=== PATIENT | female | born 1975 | race Hispanic/Latino ===

== ENCOUNTER 2020-06-21 15:06 | Emergency (ER) | payer SELFPAY ==
--- NOTE | 2020-06-21 15:32 | RAD REPORT ---
EXAM DESCRIPTION: CT - Ct Stroke Brain Wo Cont - 06/21/2020 3:24 pm CLINICAL HISTORY: NUMBNESS, left facial droop, left leg tingling COMPARISON: No comparisons TECHNIQUE: Axial 5 millimeter thick images of the head were obtained without IV contrast. All CT scans are performed using dose optimization technique as appropriate and may include automated exposure control or mA/KV adjustment according to patient size. FINDINGS: No intracranial hemorrhage, mass, or cerebral edema. No acute infarction identifiable. No extra-axial fluid collections. Watson matter-white matter differentiation is preserved. Visualized portions of the mastoid air cells, paranasal sinuses, and orbits are unremarkable. Findings telephoned to Romain Barrera at 3:28 p.m. IMPRESSION: No CT evidence of acute intracranial process.
[2020-06-21 15:47] LABS: Absolute Lymphocytes (CBC) 2.9 K/uL (0.7-4.9); Basophils % 1.2 % (0-1.3); Hematocrit 43.2 % (36.0-45.0); Lymphocytes % 29.1 % (15.3-44.8); MPV 8.3 fL (7.6-11.3); RBC Red Blood Cell Count 4.91 M/uL (3.86-4.86)
[2020-06-21 15:51] LABS: Protime INR 0.95
[2020-06-21 15:59] LABS: Potassium 3.4 mmol/L (3.5-5.1)
--- NOTE | 2020-06-21 16:12 | RAD REPORT ---
EXAM DESCRIPTION: RAD - Chest Single View - 06/21/2020 3:51 pm CLINICAL HISTORY: Paresthesia, left-sided facial droop, Stroke protocol chest film COMPARISON: None TECHNIQUE: AP portable chest image was obtained 06/21/2020 3:51 pm . FINDINGS: Lungs are clear. Heart and vasculature are normal. No measurable pleural effusion and no p neumothorax. No acute bony abnormality seen. No acute aortic findings suspected. IMPRESSION: No acute cardiopulmonary process.
--- NOTE | 2020-06-21 17:50 | RAD REPORT ---
EXAM DESCRIPTION: MRI - Brain Wo Cont - 06/21/2020 5:42 pm CLINICAL HISTORY: Left eye droop, left-sided facial tingling COMPARISON: Ct Stroke Brain Wo Cont dated 06/21/2020 TECHNIQUE: Sagittal T1-weighted images were obtained along with axial PD, heavily T2-weighted and T2 -FLAIR images. Axial DWI and ADC mapping sequences were also obtained along with coronal heavily T2-w eighted images. FINDINGS: No intracranial hemorrhage, mass or acute infarction. There is no edema or shift of midlin e structures. No extra-axial fluid collections. Watson-matter/white matter junction is preserved. Signa l voids are seen as a normal finding in the major intracranial vessels. No volume loss chronic ischem ic change. No evidence for vasculitis, demyelinating disease or other significant finding. No globe or orbital content abnormality. No tonsillar ectopia. No sella or supra sella abnormality se en. Mastoid air cells and paranasal sinuses are clear. IMPRESSION: Negative non-contrast MRI of the Brain.
--- NOTE | 2020-06-21 17:54 | EDPHYS ---
Physician Documentation [facility] Name: Cynthia Bazzi Age: 45 yrs Sex: Female : 1975 Arrival Date: 06/21/2020 Time: 15:09 Bed 6 Private MD: FRANCOIS Physician Jhony Cosby HPI: 06/21 15:20 This 45 yrs old Female presents to ER via Wheelchair with complaints of Facial pm1 Droop, Numbness Of Face. 15:20 The patient presents to the emergency department with paresthesias of the left side of pm1 upper lip, left facial drooping. Onset: The symptoms/episode began/occurred at 11:00. Context: occurred at home, occurred while the patient was face time with family. Associated signs and symptoms: Pertinent negatives: fever, headache, visual changes. Severity of symptoms: in the emergency department the symptoms are unchanged. Severity of symptoms: Pain is currently a 0 / 10. Patient's baseline: Neuro: alert and fully oriented, Motor: no deficits, Ambulation: walks without assistance, Speech: normal. The patient has not experienced similar symptoms in the past. Patient was on the phone face timing with her family and they mentioned to her that her left eyelid looked like it was drooping. Patient noted some numbness and tingling to left upper lip. No extremity weakness present, difficulty talking or walking. Historical: - Allergies: 15:28 No Known Allergies; tw2 - Home Meds: 15:28 None [Active]; tw2 - PMHx: 15:28 Hypertension; tw2 - PSHx: 15:28 Tubal ligation; tw2 - Immunization history:: Adult Immunizations. - Social history:: Smoking status: . ROS: 16:02 Constitutional: Negative for fever, chills, and weight loss, Neck: Negative for injury, pm1 pain, and swelling. 16:02 Cardiovascular: Negative for chest pain, palpitations, and edema, Respiratory: Negative for shortness of breath, cough, wheezing, and pleuritic chest pain, Abdomen/GI: Negative for abdominal pain, nausea, vomiting, diarrhea, and constipation, Back: Negative for injury and pain, MS/Extremity: Negative for injury and deformity, Skin: Negative for injury, rash, and discoloration. 16:02 Eyes: Negative for blurry vision, injury or acute deformity, pain, vision loss. 16:02 Neuro: Positive for numbness, of the left side of upper lip, Negative for dizziness, headache, syncope, near syncope, visual changes, weakness. Exam: 15:39 Constitutional: This is a well developed, well nourished patient who is awake, alert, pm1 and in no acute distress. Head/Face: Normocephalic, atraumatic. 15:39 ENT: Nares patent. No nasal discharge, no septal abnormalities noted. Tympanic membranes are normal and external auditory canals are clear. Oropharynx with no redness, swelling, or masses, exudates, or evidence of obstruction, uvula midline. Mucous membranes moist. Neck: Trachea midline, no thyromegaly or masses palpated, and no cervical lymphadenopathy. Supple, full range of motion without nuchal rigidity, or vertebral point tenderness. No Meningismus. 15:39 Back: No spinal tenderness. No costovertebral tenderness. Full range of motion. Skin: Warm, dry with normal turgor. Normal color with no rashes, no lesions, and no evidence of cellulitis. MS/ Extremity: Pulses equal, no cyanosis. Neurovascular intact. Full, normal range of motion. 15:39 Eyes: Periorbital structures: swelling, that is mild, on the left upper eyelid, Pupils: no acute changes, Extraocular movements: intact throughout, Conjunctiva: no acute changes. 15:39 Cardiovascular: Rate: normal, Rhythm: regular, Pulses: no pulse deficits are appreciated, Heart sounds: normal, Edema: is not appreciated. 15:39 Respiratory: Exam negative for acute changes, respiratory distress, shortness of breath, Breath sounds: are clear throughout. 15:39 Abdomen/GI: Inspection: abdomen appears normal, Palpation: abdomen is soft and non-tender, in all quadrants. 15:39 Neuro: Orientation: is normal, Mentation: is normal, Cranial nerves: CN II- XII are normal as tested, Motor: moves all fours, strength is 5/5 in all extremities, Sensation: is normal, no obvious gross deficits. 15:39 Psych: Behavior/mood is anxious, Affect is animated, Oriented to person, place, time. Vital Signs: 15:15 BP 160 / 94; Pulse 111; Resp 18; Temp 97.9(TE); Pulse Ox 98% on R/A; Weight 86.18 kg tw2 (R); Height 5 ft. 3 in. (160.02 cm); Pain 0/10; 15:30 BP 166 / 106; Pulse 85; Resp 16 S; Pulse Ox 98% on R/A; Pain 0/10; jl7 16:30 BP 151 / 94; Pulse 84; Resp 15; Pulse Ox 99% ; jl7 17:45 BP 139 / 90; Pulse 72; Resp 14; Pulse Ox 100% ; Pain 0/10; jl7 15:15 Body Mass Index 33.66 (86.18 kg, 160.02 cm) tw2 NIH Stroke Scale Scores: 15:30 NIHSS Score: 0 jl7 15:39 NIHSS Score: 0 pm1 MDM: 15:16 Patient medically screened. pm1 17:52 Data reviewed: vital signs. Data interpreted: Pulse oximetry: on room air is 98 %. pm1 Interpretation: normal. Counseling: I had a detailed discussion with the patient and/or guardian regarding: the historical points, exam findings, and any diagnostic results supporting the discharge/admit diagnosis, lab results, radiology results, the need for outpatient follow up, to return to the emergency department if symptoms worsen or persist or if there are any questions or concerns that arise at home. 17:52 ED course: Patient with current blood pressure 139/90, [address] Cosby recommended pm1 metoprolol and Norvasc based on initial presentation blood pressure along with daily aspirin and multivitamin. Patient was anxious at that time and tachycardic. Patient is now calm. Will initiate that patient on starting dose of lisinopril along with recommending multivitamin and aspirin. Discussed follow up with PCP, cardiology, and neurology for reevalution and further management of blood pressure. 06/21 15:19 Order name: Basic Metabolic Panel; Complete Time: 16:00 pm1 06/21 15:19 Order name: CBC with Diff; Complete Time: 15:52 pm1 06/21 15:19 Order name: Protime (+inr); Complete Time: 15:54 pm1 06/21 15:19 Order name: Ptt, Activated; Complete Time: 15:54 pm1 06/21 15:19 Order name: CT Stroke Brain w/o Contrast; Complete Time: 15:33 pm1 06/21 15:43 Order name: Glucose, Ancillary Testing; Complete Time: 15:52 EDMS 06/21 15:19 Order name: Stroke CXR 1 View; Complete Time: 16:22 pm1 06/21 15:19 Order name: EKG; Complete Time: 15:21 pm1 06/21 15:19 Order name: Accucheck; Complete Time: 15:43 pm1 06/21 15:19 Order name: Cardiac monitoring; Complete Time: 18:23 pm1 06/21 15:19 Order name: EKG - Nurse/Tech; Complete Time: 15:43 pm06/21 15:19 Order name: IV Saline Lock; Complete Time: 15:43 pm06/21 15:45 Order name: MRI - Brain Wo Cont; Complete Time: 17:52 pm1 06/21 15:19 Order name: Labs collected and sent; Complete Time: 15:43 pm1 06/21 15:19 Order name: NPO; Complete Time: 15:43 pm1 06/21 15:19 Order name: O2 Per Protocol; Complete Time: 15:43 pm1 06/21 15:19 Order name: O2 Sat Monitoring; Complete Time: 15:43 pm1 06/21 15:19 Order name: Stroke Swallow Screen; Complete Time: 18:24 pm1 Administered Medications: 18:47 Not Given (Hemodynamic Parameters): NS 0.9% 1000 ml IV at 1000 ml once jl7 Point of Care Testing: Blood Glucose: 15:30 Blood Glucose: 108 mg/dL; sv Ranges: Critical Glucose Levels:Adult <50 mg/dl or >400 mg/dl <40 mg/dl or >180 mg/dl Disposition: 06/22 17:23 Co-signature as Attending Physician, Jhony Cosby MD I agree with the assessment and sumaya plan of care. Disposition: 06/21/20 17:54 Discharged to Home. Impression: Paresthesia of skin, Anxiety disorder, unspecified, Essential (primary) hypertension. - Condition is Stable. - Discharge Instructions: Hypertension, Paresthesia, How to Take Your Blood Pressure, [id number], Aspirin and Your Heart, Generalized Anxiety Disorder, DASH Eating Plan, Managing Your Hypertension. - Prescriptions for Lisinopril 10 mg Oral Tablet - take 1 tablet by ORAL route once daily; 20 tablet. - Medication Reconciliation Form, Thank You Letter, Antibiotic Education, Prescription Opioid Use form. - Follow up: Emergency Department; When: As needed; Reason: Worsening of condition. Follow up: Private Physician; When: 2 - 3 days; Reason: Recheck today's complaints, Continuance of care, Re-evaluation by your physician. Follow up: Miguel Angel Gallo MD; When: 2 - 3 days; Reason: Recheck today's complaints, Continuance of care, Re-evaluation by your physician. Follow up: Alex Arechiga MD; When: 2 - 3 days; Reason: Recheck today's complaints, Continuance of care, Re-evaluation by your physician. - Problem is new. - Symptoms have improved. NIH Stroke Scale - NIH Stroke Score Date: 06/21/2020 Time: 15:30 Total Score = 0 1a. Level of Consciousness (LOC) - 0(Alert) 1b. Level of Consciousness (LOC) (Year \T\ Age) - 0(Both) 1c. LOC Commands (Open \T\ Closes Eyes/Can Technician) - 0(Both) 2. Best Gaze (Lateral Gaze Paresis) - 0(Normal) 3. Visual Field Loss - 0(No visual loss) 4. Facial Palsy - 0(Normal) 5a. Left Arm: Motor (10-second hold) - 0(No drift) 5b. Right Arm: Motor (10-second hold) - 0(No drift) 6a. Left Leg: Motor (5-second hold - always test supine) - 0(No drift) 6b. Right Leg: Motor (5-second hold - always test supine) - 0(No drift) 7. Limb Ataxia (finger/nose \T\ heel/booth - test with eyes open) - 0(Absent) 8. Sensory Loss (pinprick arms/legs/face) - 0(Normal) 9. Best Language: Aphasia (description/naming/reading) - 0(No aphasia) 10. Dysarthria (speech clarity - read or repeat words) - 0(Normal) 11. Extinction and Inattention (visual/tactile/auditory/spatial/personal) - 0(No abnormality) Initials: jl7 NIH Stroke Scale - NIH Stroke Score Date: 06/21/2020 Time: 15:39 Total Score = 0 1a. Level of Consciousness (LOC) - 0(Alert) 1b. Level of Consciousness (LOC) (Year \T\ Age) - 0(Both) 1c. LOC Commands (Open \T\ Closes Eyes/Can Technician) - 0(Both) 2. Best Gaze (Lateral Gaze Paresis) - 0(Normal) 3. Visual Field Loss - 0(No visual loss) 4. Facial Palsy - 0(Normal) 5a. Left Arm: Motor (10-second hold) - 0(No drift) 5b. Right Arm: Motor (10-second hold) - 0(No drift) 6a. Left Leg: Motor (5-second hold - always test supine) - 0(No drift) 6b. Right Leg: Motor (5-second hold - always test supine) - 0(No drift) 7. Limb Ataxia (finger/nose \T\ heel/booth - test with eyes open) - 0(Absent) 8. Sensory Loss (pinprick arms/legs/face) - 0(Normal) 9. Best Language: Aphasia (description/naming/reading) - 0(No aphasia) 10. Dysarthria (speech clarity - read or repeat words) - 0(Normal) 11. Extinction and Inattention (visual/tactile/auditory/spatial/personal) - 0(No abnormality) Initials: pm1 Signatures: Dispatcher [employer] EDMS Jhony Cosby MD MD cha Marinas, Patrick, SUPERVISOR SHRIMP POND SUPERVISOR SHRIMP POND pm1 Viv Mccarthy RN RN tw2 Francisco Betancur RN RN jl7 Corrections: (The following items were deleted from the chart) 06/21 17:57 17:54 06/21/2020 17:54 Discharged to Home. Impression: Paresthesia of skin; pm1 Anxiety disorder, unspecified; Essential (primary) hypertension. Condition is Stable. Forms are Medication Reconciliation Form, Thank You Letter, Antibiotic Education, Prescription Opioid Use. Follow up: Emergency Department; When: As needed; Reason: Worsening of condition. Follow up: Private Physician; When: 2 - 3 days; Reason: Recheck today's complaints, Continuance of care, Re-evaluation by your physician. Problem is new. Symptoms have improved. pm1 18:48 17:57 06/21/2020 17:54 Discharged to Home. Impression: Paresthesia of skin; jl7 Anxiety disorder, unspecified; Essential (primary) hypertension. Condition is Stable. Discharge Instructions: Hypertension, Paresthesia, How to Take Your Blood Pressure, [id number], Generalized Anxiety Disorder, DASH Eating Plan, Managing Your Hypertension. Prescriptions for Norvasc 10 mg Oral Tablet - take 1 tablet by ORAL route once daily; 30 tablet, Metoprolol Tartrate 25 mg Oral Tablet - take 1 tablet by ORAL route 2 times per day with a meal; 20 tablet. and Forms are Medication Reconciliation Form, Thank You Letter, Antibiotic Education, Prescription Opioid Use. Follow up: Emergency Department; When: As needed; Reason: Worsening of condition. Follow up: Private Physician; When: 2 - 3 days; Reason: Recheck today's complaints, Continuance of care, Re-evaluation by your physician. Follow up: Miguel Angel Gallo; When: 2 - 3 days; Reason: Recheck today's complaints, Continuance of care, Re-evaluation by your physician. Follow up: Alex Arechiga; When: 2 - 3 days; Reason: Recheck today's complaints, Continuance of care, Re-evaluation by your physician. Problem is new. Symptoms have improved. pm1
--- NOTE | 2020-06-21 17:54 | ER ---
Nurse's Notes [facility] Name: Cynthia Bazzi Age: 45 yrs Sex: Female : 1975 Arrival Date: 06/21/2020 Time: 15:09 Bed 6 Private MD: Diagnosis: Paresthesia of skin;Anxiety disorder, unspecified;Essential (primary) hypertension Presentation: 06/21 15:15 Chief complaint: Patient states: i was fine at 11 am, then about an hour ago i was face tw2 timing someone and they noticed the left side of my face drooping, then i noticed my left lip tingling, no weakness on hands or legs. Coronavirus screen: At this time, the client does not indicate any symptoms associated with coronavirus-19. Ebola Screen: Patient denies travel to an Ebola-affected area in the 21 days before illness onset. Initial Sepsis Screen: Does the patient meet any 2 criteria? HR > 90 bpm. No. Patient's initial sepsis screen is negative. Does the patient have a suspected source of infection? No. Patient's initial sepsis screen is negative. Risk Assessment: Do you want to hurt yourself or someone else? Patient reports no desire to harm self or others. Onset of symptoms was June 21, 2020. 15:15 Method Of Arrival: Wheelchair tw2 15:15 Acuity: LENNY 2 tw2 15:23 Note pt moved via w/c to CT at 1517 with SALOMÓN Nam and then to ER exam #6, provider tw2 PATTI Hoyos and SALOMÓN Singh and SALOMÓN Dowd at bedside at this time. 15:30 No acute neurological deficit is noted. Pre-hospital glucose is not applicable to this jl7 patient. 15:30 Care prior to arrival: None. [facility] emergency Triage Assessment: 15:15 General: Appears in no apparent distress. obese, well groomed, Behavior is anxious. tw2 Pain: Denies pain. Neuro: Reports LEFT side facial droop with LEFT lip tingling. Stroke Activation: Symptom onset < 3 hours Physician: Stroke Attending; Name: ; Notified At: ; Arrived At: Physician: Chief Stroke Resident; Name: ; Notified At: ; Arrived At: Physician: Stroke Resident; Name: ; Notified At: ; Arrived At: Physician: ED Attending; Name: ; Notified At: ; Arrived At: Physician: ED Resident; Name: ; Notified At: ; Arrived At: 15:15 called at 1515 when pt was in triage tw Historical: - Allergies: 15:28 No Known Allergies; tw - Home Meds: 15:28 None [Active]; tw2 - PMHx: 15:28 Hypertension; tw2 - PSHx: 15:28 Tubal ligation; tw2 - Immunization history:: Adult Immunizations. - Social history:: Smoking status: . Screenin:30 Abuse screen: Denies threats or abuse. Denies injuries from another. Nutritional jl7 screening: No deficits noted. Tuberculosis screening: No symptoms or risk factors identified. Fall Risk IV access (20 points). Total Molina Fall Scale indicates No Risk (0-24 pts). 15:40 The patient has not been NPO before screening. The patient is currently on the jl7 following diet: Regular The patient is alert, able to follow commands. The patient does not exhibit slurred or garbled speech The patient is not exhibiting difficulty speaking. The patient does not exhibit difficulty understanding words. The patient is able to swallow own secretions with no drooling or need for suction. Patient tolerated one teaspoon of water. No drooling, immediate coughing, gurgling, or clearing of the throat was noted. The patient tolerated 90mL of water. No drooling, immediate coughing, gurgling, or clearing of the throat was noted. The patient passed the bedside swallow screening. Oral medications may be given as ordered. Contact Physician for further diet orders. Provider notified of bedside swallow screening results: Romain Barrera TRAFFIC CONTROL OPERATOR. Assessment: 15:23 VAN Scoring: Arm Drift: Patients demonstrates NO arm weakness. Patient is VAN Negative. jl7 The patient has not been NPO before screening. The patient is currently on the following diet: Regular The patient is alert, and able to follow commands. The patient does not exhibit slurred or garbled speech. The patient is not exhibiting difficulty speaking. The patient does not exhibit difficulty understanding words. The patient is able to swallow own secretions with no drooling or need for suction. Patient tolerated one teaspoon of water. No drooling, immediate coughing, gurgling, or clearing of the throat was noted. The patient tolerated 90mL of water. No drooling, immediate coughing, gurgling, or clearing of the throat was noted. The patient passed the bedside swallow screening. Oral medications may be given as ordered. Contact Physician for further diet orders. Provider notified of bedside swallow screening results: Romain Barrera TRAFFIC CONTROL OPERATOR. T-PA (Activase) Screening: Contraindications: Rapidly improving condition or minor deficit: Yes. 15:23 Reassessment: Pt's left eye noted to open a little bit slower than the right, no jl7 drooping noted to eyes. Pt reports tingling at the left nostril and along the left upper lipline, no drooping noted to lip. General: Appears in no apparent distress. uncomfortable, Behavior is cooperative, anxious. Pain: Denies pain. Neuro: Level of Consciousness is awake, alert, obeys commands, Oriented to person, place, time, situation. Cardiovascular: Patient's skin is warm and dry. Respiratory: Airway is patent Respiratory effort is even, unlabored, Respiratory pattern is regular, symmetrical, Denies shortness of breath. Derm: Skin is pink, warm \T\ dry. 15:36 Reassessment: Dr Cosby at the bedside. sv Vital Signs: 15:15 BP 160 / 94; Pulse 111; Resp 18; Temp 97.9(TE); Pulse Ox 98% on R/A; Weight 86.18 kg tw2 (R); Height 5 ft. 3 in. (160.02 cm); Pain 0/10; 15:30 BP 166 / 106; Pulse 85; Resp 16 S; Pulse Ox 98% on R/A; Pain 0/10; jl7 16:30 BP 151 / 94; Pulse 84; Resp 15; Pulse Ox 99% ; jl7 17:45 BP 139 / 90; Pulse 72; Resp 14; Pulse Ox 100% ; Pain 0/10; jl7 15:15 Body Mass Index 33.66 (86.18 kg, 160.02 cm) tw2 NIH Stroke Scale Scores: 15:30 NIHSS Score: 0 jl7 15:39 NIHSS Score: 0 pm1 ED Course: 15:09 Patient arrived in ED. ag3 15:16 Romain Barrera NP is PHCP. pm1 15:16 Jhony Cosby MD is Attending Physician. pm1 15:21 Francisco Betancur RN is Primary Nurse. jl7 15:24 CT Stroke Brain w/o Contrast In Process Unspecified. EDMS 15:26 Triage completed. tw2 15:30 Arm band placed on. tw2 15:30 Patient has correct armband on for positive identification. Placed in gown. Bed in low sv position. Call light in reach. hall monitor on. Pulse ox on. NIBP on. Door closed. Head of bed elevated. 15:30 Inserted saline lock: 20 gauge in left antecubital area, using aseptic technique. Blood sv collected. Flushed left antecubital with 5 ml normal saline. 15:30 Initial lab(s) drawn, by ED staff, sent to lab. EKG done, by ED staff, reviewed by jl7 Romain Barrera NP. 15:51 Stroke CXR 1 View In Process Unspecified. EDMS 17:39 MRI - Brain Wo Cont In Process Unspecified. EDMS 17:57 Miguel Angel Gallo MD is Referral Physician. pm1 17:57 Alex Arechiga MD is Referral Physician. pm1 18:25 No provider procedures requiring assistance completed. jl7 18:30 IV discontinued, intact, bleeding controlled, No redness/swelling at site. Pressure jl7 dressing applied. Administered Medications: 18:47 Not Given (Hemodynamic Parameters): NS 0.9% 1000 ml IV at 1000 ml once jl7 Point of Care Testing: Blood Glucose: 15:30 Blood Glucose: 108 mg/dL; sv Ranges: Outcome: 17:54 Discharge ordered by . pm1 18:30 Discharged to home ambulatory. jl7 18:30 Condition: stable 18:30 Discharge instructions given to patient, Instructed on discharge instructions, follow up and referral plans. medication usage, Demonstrated understanding of instructions, follow-up care, medications, Prescriptions given X 1. 18:48 Patient left the ED. jl7 NIH Stroke Scale - NIH Stroke Score Date: 06/21/2020 Time: 15:30 Total Score = 0 1a. Level of Consciousness (LOC) - 0(Alert) 1b. Level of Consciousness (LOC) (Year \T\ Age) - 0(Both) 1c. LOC Commands (Open \T\ Closes Eyes/Algebra Tutor) - 0(Both) 2. Best Gaze (Lateral Gaze Paresis) - 0(Normal) 3. Visual Field Loss - 0(No visual loss) 4. Facial Palsy - 0(Normal) 5a. Left Arm: Motor (10-second hold) - 0(No drift) 5b. Right Arm: Motor (10-second hold) - 0(No drift) 6a. Left Leg: Motor (5-second hold - always test supine) - 0(No drift) 6b. Right Leg: Motor (5-second hold - always test supine) - 0(No drift) 7. Limb Ataxia (finger/nose \T\ heel/booth - test with eyes open) - 0(Absent) 8. Sensory Loss (pinprick arms/legs/face) - 0(Normal) 9. Best Language: Aphasia (description/naming/reading) - 0(No aphasia) 10. Dysarthria (speech clarity - read or repeat words) - 0(Normal) 11. Extinction and Inattention (visual/tactile/auditory/spatial/personal) - 0(No abnormality) Initials: jl7 NIH Stroke Scale - NIH Stroke Score Date: 06/21/2020 Time: 15:39 Total Score = 0 1a. Level of Consciousness (LOC) - 0(Alert) 1b. Level of Consciousness (LOC) (Year \T\ Age) - 0(Both) 1c. LOC Commands (Open \T\ Closes Eyes/Algebra Tutor) - 0(Both) 2. Best Gaze (Lateral Gaze Paresis) - 0(Normal) 3. Visual Field Loss - 0(No visual loss) 4. Facial Palsy - 0(Normal) 5a. Left Arm: Motor (10-second hold) - 0(No drift) 5b. Right Arm: Motor (10-second hold) - 0(No drift) 6a. Left Leg: Motor (5-second hold - always test supine) - 0(No drift) 6b. Right Leg: Motor (5-second hold - always test supine) - 0(No drift) 7. Limb Ataxia (finger/nose \T\ heel/booth - test with eyes open) - 0(Absent) 8. Sensory Loss (pinprick arms/legs/face) - 0(Normal) 9. Best Language: Aphasia (description/naming/reading) - 0(No aphasia) 10. Dysarthria (speech clarity - read or repeat words) - 0(Normal) 11. Extinction and Inattention (visual/tactile/auditory/spatial/personal) - 0(No abnormality) Initials: pm1 Signatures: Dispatcher [employer] EDMS Deidra, Noemí, RN RN sv Romain Barrera, TRAFFIC CONTROL OPERATOR TRAFFIC CONTROL OPERATOR pm1 Viv Mccarthy, RN RN tw2 Francisco Betancur RN RN jl7 Deepa Arellano ag3
[2020-06-21 19:16] VITALS: TEMP 97.9
[2020-06-21 19:21] VITALS: BP 139/90; O2SAT 100
--- NOTE | 2020-06-22 06:32 | EKG ---
Test Date: 2020-06-21 Test Time: 15:31:12 Newborn Photographer: WILLIAM MEASUREMENT RESULTS: Intervals: Rate: 118 IA: 126 QRSD: 80 QT: 328 QTc: 459 Woodruff: P: 51 IA: 126 QRS: 34 T: 40 INTERPRETIVE STATEMENTS: Sinus tachycardia Possible Left atrial enlargement Nonspecific ST abnormality Abnormal ECG No previous ECG available for comparison Electronically Signed On 06-22-20 06:31:47 BLADDER BLOWER by Alex Arechiga
== END 2020-06-21 18:48 | disposition home or self-care (01) ==
LOC: ER 15:06
DX: F41.9 Anxiety disorder, unspecified (principal); I10 Essential (primary) hypertension
CPT/HCPCS: 36415; 70450; 70551; 71045; 80048; 82947; 85025; 85610; 85730; 93005; 99284